=== PATIENT | female | born 2000 | race Caucasian/White ===

== ENCOUNTER 2022-09-29 10:39 | Emergency (ER) | payer BC | END 2022-09-29 12:25 | disposition home or self-care (01) | LOC: MW.ED 10:39 | DX: Z32.01 Encounter for pregnancy test, result positive (principal) | CPT/HCPCS: 36415; 84702; 99282 ==

== ENCOUNTER 2023-05-19 | Inpatient (IN) | payer MEDICAID ==
[2023-05-19] MEDS ORDERED: Tranexamic Acid IN NACL,ISO-OS 1,000 MG in Premix Bag 1 BAG IV PRN ×2 (00:37)
[2023-05-19] MEDS ORDERED: Lidocaine 1% 50 ML MDV INJECT PRN (00:37)
[2023-05-19] MEDS ORDERED: Water For Irrigation,Sterile 1,000 ML Container IRR PRN (00:37)
[2023-05-19] MEDS ORDERED: Sodium Chloride 0.9% 10 ML Syringe FLUSH PRN (00:37)
[2023-05-19] MEDS ORDERED: Nalbuphine 10 MG/0.5 ML Syringe IVPUSH PRN (00:37)
[2023-05-19] MEDS ORDERED: Methylergonovine 0.2 MG/1 ML Amp IM PRN (00:37)
[2023-05-19] MEDS ORDERED: Sodium Chloride 0.9% 20 ML SDV IV PRN (00:37)
[2023-05-19] MEDS ORDERED: Sodium Chloride 0.9% 2.5 ML Syringe FLUSH PRN (00:37)
[2023-05-19] MEDS ORDERED: Ondansetron 4 MG/2 ML SDV IVPUSH PRN (00:37)
[2023-05-19] MEDS ORDERED: Misoprostol 200 MCG Tab PO PRN (00:37)
[2023-05-19] MEDS ORDERED: Carboprost Tromethamine 250 MCG/1 mL Vial IM PRN (00:37)
[2023-05-19] MEDS ORDERED: Terbutaline 1 MG/ML SDV SUBCUT PRN (00:37)
[2023-05-19] MEDS ORDERED: Oxytocin/0.9 % Sodium Chloride 30 UNIT/500 ML BAG IV SCH ×2 (00:45)
[2023-05-19] MEDS ORDERED: Misoprostol 25 MCG (1/4 of 100 MCG) Tab VAG PRN ×2 (01:00→05:00)
[2023-05-19] MEDS: Misoprostol 25 MCG (1/4 of 100 MCG) Tab PO PRN ×2 (01:22→05:24)
[2023-05-19 01:37] LABS: HEMATOCRIT 35.1 % (37.0-47.0); HEMOGLOBIN 12.3 g/dL (12.0-16.0); MEAN CORPUSCULAR HEMOGLOBIN 31.9 pg (28.0-32.0); MEAN CORPUSCULAR VOLUME 91.2 fL (83.0-99.0); MEAN PLATELET VOLUME 10.6 fL (9.4-12.3); PLATELET COUNT,PLT 242 K/uL (150-400); RED BLOOD CELL COUNT 3.85 M/uL (4.10-5.30); WHITE BLOOD CELL COUNT,WBC 14.54 K/uL (3.9-11.3)
[2023-05-19] MEDS ORDERED: Phenylephrine HCl 0.5 MG/5 ML AMP IVPUSH PRN (02:43)
[2023-05-19] MEDS ORDERED: ePHEDrine 50 MG/ML SDV IVPUSH PRN ×2 (02:43)
[2023-05-19] MEDS ORDERED: Ropivacaine HCl/PF 400 MG in Premix Bag 1 BAG EPIDUR SCH (02:45)
[2023-05-19] MEDS ORDERED: Misoprostol 50 MCG (1/2 of 100 MCG) Tab PO PRN ×2 (05:00→05:05)
[2023-05-19] MEDS: Lactated Ringers 1,000 ML IV SCH ×2 (06:30→10:36)
[2023-05-19] MEDS ORDERED: dexmedeTOMIDine HCl 200 MCG/2 ML SDV ONE (10:17)
[2023-05-19] MEDS ORDERED: Lanolin 100% Cream 7 GM Tube TOP PRN (13:26)
[2023-05-19] MEDS ORDERED: Docusate Sodium 100 MG Cap PO PRN (13:26)
[2023-05-19] MEDS ORDERED: Benzocaine/Menthol 20%-0.5% Spray 78 GM Cannister TOP PRN (13:26)
[2023-05-19] MEDS ORDERED: Witch Hazel Medicated Pads 40/Jar TOP PRN (13:26)
[2023-05-19] MEDS: Acetaminophen 500 MG Tab PO PRN (16:29)
[2023-05-19] MEDS: Ibuprofen 800 MG Tab PO PRN (17:15)
[2023-05-19] MEDS ORDERED: Lactated Ringers 1,000 ML IV SCH (20:45)
[2023-05-19] MEDS: Acetaminophen 1,000 MG in Premix Bag 1 BAG IV PRN (21:30)
[2023-05-20] MEDS: Ketorolac 30 MG/ML SDV IVPUSH PRN ×2 (00:22→07:06)
[2023-05-20] MEDS: Acetaminophen 1,000 MG in Premix Bag 1 BAG IV PRN ×2 (05:00→11:28)
[2023-05-20 06:32] LABS: HEMATOCRIT 34.7 % (37.0-47.0); HEMOGLOBIN 11.7 g/dL (12.0-16.0)
[2023-05-20] MEDS ORDERED: Sodium Chloride 0.9% 50 ML IV SCH (10:00)
[2023-05-20] MEDS ORDERED: ceFAZolin 1 GM in Sodium Chloride 0.9% 50 ML IV ONE (13:12)
[2023-05-20] MEDS ORDERED: Lidocaine 2% 5 ML SDV ONE (13:50)
[2023-05-20] MEDS: Acetaminophen 500 MG Tab PO PRN (22:57)
[2023-05-21] MEDS: Ibuprofen 800 MG Tab PO PRN (09:05)
== END 2023-05-21 12:33 | disposition home or self-care (01) | DRG 807 ==
LOC: MW.OBCHECK → MW.OB 00:02 → MW.OBCHECK 00:37 → OBSVTOIN 00:37 → MW.OB 19:45
PROVIDERS: ADMIT Obstetrics & Gynecology Obstetrics; ATTEND Obstetrics & Gynecology Obstetrics
PROC: 10E0XZZ Delivery of Products of Conception, External Approach (ICD-10-PCS; principal; 2023-05-19)
PROC: 3E0P7VZ Introduction of Hormone into Female Reproductive, Via Natural or Artificial Opening (ICD-10-PCS; 2023-05-19)
PROC: 3E0R3BZ Introduction of Anesthetic Agent into Spinal Canal, Percutaneous Approach (ICD-10-PCS; 2023-05-19)
PROC: 00HU33Z Insertion of Infusion Device into Spinal Canal, Percutaneous Approach (ICD-10-PCS; 2023-05-19)
DX: O36.5930 Maternal care for other known or suspected poor fetal growth, third trimester, not applicable or unspecified (principal); Z37.0 Single live birth; Z3A.37 37 weeks gestation of pregnancy; O69.81X0 Labor and delivery complicated by cord around neck, without compression, not applicable or unspecified; Z77.22 Contact with and (suspected) exposure to environmental tobacco smoke (acute) (chronic)
CPT/HCPCS: 36415; 51702; 59025; 59409; 85014; 85018; 85027; 86592; 86850; 86900; 86901; A9270-GY; J0131; J0690; J1885; J2300; J2405; J2590; J2795; J3490; J7120